=== PATIENT | female | born 1995 | race Hispanic/Latino ===

== ENCOUNTER → 2021-10-23 | Emergency (ER) | payer OTHER ==
[~2021-10-23] MED LIST: Fentanyl 100 MCG/2 ML VIAL ONE; HYDROcodone/Acetaminophen 5/325 mg Tablet ONE; Ibuprofen 200 MG TAB ONE; Morphine 4 MG/ML VIAL ONE
[2021-10-24 08:02] LABS: SARS-CoV-2 NAA Rapid Test Not Detected (NotDetected)
[2021-10-24 11:32] LABS: Pregnancy Test - Urine (BHCG) Negative (Negative); Pregu Control Background? CLEAR/WHITE (CLR/WHITE); Pregu Control Bar Appear? YES (CONTROL BAR)
== END ==
LOC: CSHERS 22:29
DX: S42.492A Other displaced fracture of lower end of left humerus, initial encounter for closed fracture (principal); Z20.822 Contact with and (suspected) exposure to COVID-19; W01.0XXA Fall on same level from slipping, tripping and stumbling without subsequent striking against object, initial encounter
CPT/HCPCS: 29105; 81025; 96374; 96375; 96376; J2270; J3010; U0002